=== PATIENT | male | born 1950 | race Caucasian/White ===

== ENCOUNTER 2019-06-25 09:16 | Day surgery (SDC) | payer OTHER, SELFPAY ==
[2019-06-24 07:31] VITALS: BMI 23.0
[2019-06-24 13:09] VITALS: BMI 22.2
[2019-06-25 09:31] VITALS: BP 135/87; PULSE 56; RESP 18; TEMP 36.8; O2SAT 98
[2019-06-25] MEDS: sodium chloride 0.9% 1,000 ML 30 ML IV (09:38)
--- NOTE | 2019-06-25 09:43 | W.PM.OPSUD ---
Surgery/Procedure H&P Update DATE OF PROCEDURE: June 25, 2019 DATE H&P PERFORMED: 06/21/19 H&P UPDATE INFORMATION: I have reviewed H&P completed within last 30 days, I have examined patient prior to procedure and No changes to prior documentation PREOP DIAGNOSIS: Dysphagia PLANNED PROCEDURE: Operation Date: 06/25/19 10:50 Proposed Procedures p EGD 38388/R13.10(Not Applicable) - Ghanshyam Pantoja MD
--- NOTE | 2019-06-25 10:11 | ANES.PREANE2 ---
Pre-Anesthetic Assessment Pre-Anesthetic Assessment: Height/Weight: Height 1.91 m Weight 80.739 kg Temp Pulse Resp BP Pulse Ox 98.2 F 56 L 18 135/87 98 06/25/19 09:31 06/25/19 09:31 06/25/19 09:31 06/25/19 09:31 06/25/19 09:31 Preop Diagnosis: Dysphagia Proposed Procedure: Operation Date: 06/25/19 10:50 Proposed Procedures p EGD 95022/R13.10(Not Applicable) - Ghanshyam Pantoja MD Was Beta Tiffany taken within 24 hours: N/A Last intake: Intake Last Liquid Date 06/24/19 Last Liquid Time 19:00 Last Solid Date 06/24/19 Last Solid Time 19:00 Social: Social History: No alcohol and No tobacco Exam: Pre-Anes Outpt Exam: alert, oriented x 3, clear to auscultation bilaterally and regular rate & rhythm Airway: Submandibular: WNL Cervical ROM: WNL MP: 2 Dentition: Full History/ROS: No significant history except as noted and No significant complaints Pulmonary: Pulmonary: None reported CV/HEM: CV/HEM: None reported : : None reported Hepatic: Hepatic: None reported GI: GI: GERD and Hiatus hernia Metabolic: Metabolic: None reported Musc/skel: Musc/skel: None reported Neuropsych: Neuropsych: None reported Anesthetic Plan: ASA status: 2 Anesthesia: Anesthesia Evaluation and MAC Risk of > 500 ml blood loss (7ml/kg in children): No Meds/Allergies Current Medications: Current Medications Generic Name Dose Route Start Last Admin Trade Name Freq PRN Reason Stop Dose Admin Sodium Chloride 1,000 mls @ 30 ml s/hr 06/25/19 09:30 06/25/19 09:38 Sodium Chloride 0.9% IV 06/26/19 09:29 30 mls/hr .Q24H EMILIANA Administration PFSH Anesthesia PFSH: Social History Smoking and tobacco status: never smoked History of recent travel: No Data Anesthesia Cardiac Studies: No Data to Display
[2019-06-25 11:08] VITALS: BP 149/105; PULSE 107; RESP 18; TEMP 36.6; O2SAT 98
[2019-06-25 11:25] VITALS: BP 163/98; PULSE 77; RESP 20; O2SAT 99
[2019-06-25 11:40] VITALS: BP 152/98; PULSE 65; RESP 20; O2SAT 98
== END 2019-06-25 13:00 | disposition home or self-care (01) ==
PROVIDERS: Family Provider Nurse Practitioner Family; Visit Provider Surgery
PROC: 0DJ08ZZ Inspection of Upper Intestinal Tract, Via Natural or Artificial Opening Endoscopic (ICD-10-PCS; CPT 43235; principal; 2019-06-25 10:45)
DX: R13.10 Dysphagia, unspecified (principal); K21.9 Gastro-esophageal reflux disease without esophagitis; K44.9 Diaphragmatic hernia without obstruction or gangrene
CPT/HCPCS: 43249; 12345; J2704; J7030

== ENCOUNTER 2019-07-02 08:05 | Outpatient (CLI) | payer OTHER, SELFPAY ==
--- NOTE | 2019-07-02 | FL_ITS ---
WS: [id number] ESOPHAGRAM WITH FLUOROSCOPY HISTORY: DYSPHAGIA COMPARISON: None available. FLUOROSCOPY TIME: 0.9 minutes. Image Editor radiograph: Increase in cervical lordosis. Study limited by motion. Esophagus and swallowing function: Barium was swallowed without difficulty. There is mild coating of the pharynx. Marked distention of the mid to distal esophagus. Food products are still present in the distal esophagus. The barium mixture demonstrating backward important motion. There is poor emptying of the distal esophagus. There is a severe stenosis at the distal esophagus. Small amount of barium does slowly proceed through the high-grade stricture. Due to the marked delay in emptying of the esop hagus the study was terminated early. Gastroesophageal reflux: Could not be evaluated due to delayed emptying. Hiatal hernia: No hiatal hernia. FL/FL barium swallow [id number] IMPRESSION: 1. High-grade stricture distal esophagus. 2. Marked dilatation of the mid to distal esophagus due to long-standing dista l esophageal stricture. Retained food products are noted within the distal esop hagus.
== END 2019-07-02 08:06 | disposition home or self-care (01) ==
LOC: RAD 08:07
PROVIDERS: Visit Provider Surgery
DX: R13.10 Dysphagia, unspecified (principal); K22.2 Esophageal obstruction; K22.8 Other specified diseases of esophagus
CPT/HCPCS: 74220

== ENCOUNTER 2019-12-12 09:32 | Outpatient (CLI) | payer OTHER, SELFPAY ==
--- NOTE | 2019-12-12 09:30 | FL_ITS ---
WS: [id number] MODIFIED BARIUM SWALLOW TECHNIQUE: Modified barium swallow with speech therapy using multiple consistencies. FLUOROSCOPY TIME: 6.3 minutes. 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 Delayed transit of the barium tablet at the GE ju nction. Limited esophagram performed after delayed transit of the barium tablet. Markedly delayed emptying of the distal esophagus at the GE junction with esophageal dilatation. Tapered narrowing at the distal esophagus sphincter with esophageal spasm. Upstream dilatation of the thoracic esophagus. Standing co lumn of contrast in the upright imaging which eventually partially empties with additional ingestion of liquid. Esophageal dysmotility with decreased contractility in the thoracic esophagus. Findings have the appearance of achalasia or pseudoachalasia with partial emptying after additional l iquid ingestion. Stricture or spasm at the distal esophagus that never fully distends. Distal esophag us never fully empties even after several minutes and additional ingestion of liquid. FL/FL barium swallow modifd [id number] IMPRESSION: 1. Markedly delayed emptying of the distal esophagus with the appearance of ac halasia or pseudoachalasia. Standing column of liquid eventually results in par tial emptying. 2. Stricture or spasm in the distal esophagus never fully distends. Recommend endoscopy to exclude underlying malignancy. 3. Prominent thoracic esophageal dilatation with decreased contractility
== END 2019-12-12 09:33 | disposition home or self-care (01) ==
LOC: RAD 09:32
PROVIDERS: Family Provider Nurse Practitioner Family; Visit Provider Surgery
DX: K22.0 Achalasia of cardia (principal)
CPT/HCPCS: 74230; 92611

== ENCOUNTER → 2020-02-19 10:11 | Outpatient (BNVA) | payer OTHER, SELFPAY | PROVIDERS: Family Provider Nurse Practitioner Family; Visit Provider Surgery | DX: Z20.828 Contact with and (suspected) exposure to other viral communicable diseases (principal); K22.0 Achalasia of cardia; R13.10 Dysphagia, unspecified | CPT/HCPCS: 87635 ==

== ENCOUNTER 2020-02-25 08:09 | Day surgery (SDC) | payer OTHER, SELFPAY ==
[2020-02-24 13:38] VITALS: BMI 18.7
[2020-02-25] VITALS (11 sets, daily range): BP systolic 120–179; BP diastolic 79–124; PULSE 54–69; RESP 12–18; TEMP 36.1–36.4; O2SAT 97–100
[2020-02-25] MEDS: sodium chloride 0.9% 50 ML 30 ML (09:15)
[2020-02-25] MEDS: heparin 5,000 unit/mL INJ 1 mL 3000 UNIT SUBCUT (09:25)
--- NOTE | 2020-02-25 09:33 | ANES.PREANE2 ---
Pre-Anesthetic Assessment Pre-Anesthetic Assessment: Height/Weight: Height 1.91 m Weight 68.039 kg Temp Pulse Resp BP Pulse Ox 97 F L 54 L 18 125/89 99 02/25/20 08:40 02/25/20 08:40 02/25/20 08:40 02/25/20 08:40 02/25/20 08:40 Preop Diagnosis: Achalasia of the cardia Proposed Procedure: Operation Date: 02/25/20 09:50 Proposed Procedures p Laparoscopic Esophageal Heller Myotomy w/ ELSIE Fundoplication 41169 89118 R13.10 K22.0(Not Applicable) - Steve Garcia MD s EGD(Not Applicable) - Steve Garcia MD Familial anesthetic complications: denies Was Beta Tiffany taken within 24 hours: N/A Last intake: Intake Last Liquid Date 02/25/20 Last Liquid Time 05:00 Last Solid Date 02/16/20 Last Solid Time 12:00 Social: Social History: No alcohol and No tobacco Exam: Pre-Anes Outpt Exam: alert, oriented x 3, clear to auscultation bilaterally and regular rate & rhythm Airway: Submandibular: WNL Cervical ROM: WNL MP: 1 History/ROS: No significant history except as noted Pulmonary: Pulmonary: None reported CV/HEM: CV/HEM: None reported : : None reported Hepatic: Hepatic: None reported GI: GI: GERD Metabolic: Metabolic: None reported Musc/skel: Musc/skel: None reported Neuropsych: Neuropsych: None reported Anesthetic Plan: ASA status: 1 Anesthesia: Anesthesia Evaluation and General Risk of > 500 ml blood loss (7ml/kg in children): No PFSH Anesthesia PFSH: Medical History Achalasia Surgical History History of colonoscopy History of esophagogastroduodenoscopy (EGD) History of tonsillectomy Family History Denies family history of Anesthesia complication Bleeding disorder Social History Smoking and tobacco status: never smoked History of recent travel: No Data Anesthesia Cardiac Studies: No Data to Display
--- NOTE | 2020-02-25 09:38 | W.PM.OPSUD ---
Surgery/Procedure H&P Update DATE OF PROCEDURE: February 25, 2020 DATE H&P PERFORMED: 02/19/21 H&P UPDATE INFORMATION: I have reviewed H&P completed within last 30 days, I have examined patient prior to procedure and No changes to prior documentation (In-depth details and finalizing discussion about surgery with potential risks of EGD and bougie insertion during the procedure with potential esophageal perforation.) PREOP DIAGNOSIS: Achalasia of the cardia PRIMARY INDICATION FOR PROCEDURE: The same PLANNED PROCEDURE: Operation Date: 02/25/20 09:50 Proposed Procedures p Laparoscopic Esophageal Heller Myotomy w/ ELSIE Fundoplication 80630 95173 R13.10 K22.0(Not Applicable) - Steve Garcia MD s EGD(Not Applicable) - Steve Garcia MD
--- NOTE | 2020-02-25 11:37 | P.OP_ITS ---
Operative Report Date of procedure: February 25, 2020 Pre-op Diagnosis: Achalasia of the cardia Post-op diagnosis: other (Large hiatal defect with frozen mediastinum) Procedure Done: Attempted laparoscopic Heller myotomy converted to diagnostic laparoscopy Specimens removed/disposition: none Surgeon: Steve Garcia Promotions Executive Producer: Surgical techshawn Cochran/Sherin/Maribel Circulating nurses Rita and Sabra Anesthesia: General (FABIOLA Alaniz/Dr. Chiu) Estimated blood loss (mL): 5 IV fluids (mL): 1,500 Urine output (mL): 300 Complications: No immediate complication Condition: stable Disposition: same day Brief History: This is a pleasant 69 years old gentleman was extensively worked up for symptoms of achalasia of the cardia and patient was counseled for different options to proceed with and he elected to proceed with laparoscopic Heller myotomy with Ramin fundoplication. Informed consent per Procedure: Patient was identified in holding area,appropriate pharmacologic DVT prophylaxis was given, patient was then taken to the operating room where the patient was placed in supine position, intubated by anesthesia prophylactic antibiotics were given per protocol,Time-out was done verifying the patient's name/date of bi rth/planned procedure and destination after the procedure, all were in agreement. SCDs confirmed to be functioning, preoperative antibiotics administered per protocol, and beta kaerl protocol was confirmed patient was placed in a low lithotomy position, both arms were tucked to the sides.and all pressure points were padded,a Polanco catheter was placed by the circulating nurse that revealed clear urine. The patient was appropriately secured to the operating table, and I asked anesthesia to swing the table [id number] in different positions that the patient is appropriately secured to the OR table which it was the case. Prep and drape of the abdomen was done under the usual sterile technique, started by 1.2 cm transverse incision with 15 blade knife, 12 cm below the xiphoid and 3 cm to the left of the midline, followed by that a 12 mm optical trocar was used under direct vision and placed in the peritoneal cavity without difficulty. The peritoneal cavity was insufflated with CO2 gas up to 15 mmHg, followed by that an angled scope 10 mm was inserted in the abdominal cavity, the abdomen was surveyed there was no evidence of blood or fluid or other evidence of intra-abdominal injury Following that two 5 mm ports were placed one hand breadth from the xiphoid process under the left subcostal region and the other one was placed at the left flank one handbreadth from the prior 5 mm trocar. A 12 mm port was placed in the subxiphoid region towards the right upper subcostal region all trochars were placed under direct visualization.. At this point to insert an additional 5 mm trocar 12 centimeter to the right of the xiphoid process at the upper abdomen, and liver retractor was placed under direct visualization to lift the liver up and helped greatly for appropriate v isualization of the hiatus. Patient was placed in steep reverse T Bryant and I stood between the patient's legs. Visualization of the hiatus showed large hiatal defect measures about 8.5 x 6.5 cm with paraesophageal hernia component including the proximal part of the stomach yet the mediastinum was frozen at this point. I started by dissecting the Pars flaccida dissection in an attempt to evaluate more the surgical pathology revealed that the defect will not be closed primarily with additional mesh on top of the repair, I did appreciate at this point that the defect will require a larger piece of mesh which is not available and giving the fact that the mediastinum is frozen clinically intraoperatively. I elected at this point to not to proceed further and abort the procedure at this point. Likely the patient would fit from potential future robotic surgical intervention And having a bigger piece of mesh beforehand. After adequate hemostasis the liver retractor was taken out under direct visualization, final laparoscopic survey was done showing no injuries to intra- abdominal structures, both 12 mm trocar sites were closed by Yvon Casillas under direct visualization using #1 PDS sutures,following that a TAP Block was done using Exparel then all ports were removed and both 12 mm ports under direct visualization.The rest of the stab incisions were closed by Vicryl sutures followed by 4-0 Monocryl followed by surgical glue and patient tolerated the procedure well. Bilateral TAP (transversus abdominous plain peripheral nerve block )block using Exparel 20 mL Exparel 40 ml Normal saline 20 ml bupivacaine 0.25% 30 mL on each side injected 20 mL injected the port sites The count of instruments,needles and sponges was completed at the end of the procedure. Polanco catheter was taken out at the end of the procedure without complications I was present for the whole entire procedure patient tolerated the procedure well,was extubated and was taken to the recovery room in stable condition.
[2020-02-25] MEDS: hyDRALAzine 20 mg/mL INJ 1 mL 5 MG IVP (12:08)
--- NOTE | 2020-02-25 12:09 | SUR.PHASEI ---
1207-ORAL AIRWAY OUT, SIMPLE MASK AT 6LPM SAT 100%
--- NOTE | 2020-02-25 14:12 | SUR.PHASEII ---
Patient ready for discharge. Awaiting his brother to pick him up.
--- NOTE | 2020-02-25 18:53 | ANE.PACU2 ---
Inpatient post-anesthesia follow up: Airway intact: Yes Vital signs: Temperature 97.3 F Pulse Rate 58 Respiratory Rate 18 Blood Pressure 120/80 Pulse Oximetry 98 Oxygen Delivery Me thod Room Air Oxygen Flow Rate 6 Fraction of Inspir ed Oxygen Hydration adequate: Yes Nausea and vomiting: No Pain level: 2 Mental status: Baseline
== END 2020-02-25 14:50 | disposition home or self-care (01) ==
PROVIDERS: Visit Provider Surgery
PROC: 0D844ZZ Division of Esophagogastric Junction, Percutaneous Endoscopic Approach (ICD-10-PCS; CPT 43279; principal; 2020-02-25 09:50)
DX: K22.0 Achalasia of cardia (principal); K21.9 Gastro-esophageal reflux disease without esophagitis; K44.9 Diaphragmatic hernia without obstruction or gangrene
CPT/HCPCS: 43279; 12345; 51702; 96365; 96372; C9290; J0131; J0360; J0690; J1100; J1644; J2250; J2405; J2704; J2710; J3010; J3490

== ENCOUNTER → 2021-04-14 09:55 | Outpatient (BNVA) | payer OTHER, SELFPAY | PROVIDERS: PCP Family Medicine; Visit Provider Internal Medicine | DX: Z01.812 Encounter for preprocedural laboratory examination (principal); Z20.822 Contact with and (suspected) exposure to COVID-19 | CPT/HCPCS: 87635 ==

== ENCOUNTER 2021-04-19 07:23 | Day surgery (SDC) | payer OTHER, SELFPAY ==
[2021-04-16 09:58] VITALS: BMI 20.6
--- NOTE | 2021-04-19 07:49 | W.PM.OPSFHP ---
Same Day Surgery H&P Indication for Procedure/HPI DATE OF PROCEDURE: April 19, 2021 CHIEF COMPLAINT/INDICATIONFOR SURGICAL PROCEDURE: Achalasia PREOP DIAGNOSIS: Achalasia, Needs EGD with botox injection PLANNED PROCEDURE: Operation Date: 04/19/21 08:45 Proposed Procedures p EGD With Botox Injection 96862/k22.0 100units(Not Applicable) - Jorge Luis Milan MD Medications/Allergies* Home Medications Medication Instructions Recorded Confirmed Type multivitamin (Daily Multi-Vitamin) 1 tab PO DAILY 06/21/19 04/16/21 History omeprazole 40 mg capsule,delayed 40 mg PO EVERY OTHER DAY cap 04/08/21 04/16/21 History release Allergies/Adverse Reactions Allergy/AdvReac Type Severity Reaction Status Date / Time No Known Allergies Allergy Verified 04/08/21 10:45 Pertinent History/Comorbid Conditions* Medical History (Updated 03/06/20 @ 12:02 by Steve Garcia MD) Achalasia Surgical History (Updated 06/21/19 @ 10:34 by Ghanshyam Pantoja MD) History of colonoscopy History of esophagogastroduodenoscopy (EGD) History of tonsillectomy Family History (Updated 06/21/19 @ 10:24 by Fany Esparza RN) Denies family history of Anesthesia complication Bleeding disorder Social History Smoking and tobacco status: never smoked History of recent travel: No Pertinent Exam Findings alert, oriented x 3, clear to auscultation bilaterally, regular rate & rhythm, operative site marked and procedure specific exam findings Recommendations Surgery/Procedure today Coding Level of Care Code Acute Truck Service Technician for g Shilo
[2021-04-19 08:18] VITALS: BP 115/83; PULSE 80; RESP 16; TEMP 36.3; O2SAT 96
[2021-04-19] MEDS: sodium chloride 0.9% 1,000 ML 30 ML IV (08:25)
--- NOTE | 2021-04-19 08:26 | P.ANESASSM_ITS ---
Pre-Anesthetic Assessment Height/Weight: Height 1.91 m Weight 74.843 kg Temp Pulse Resp BP Pulse Ox 97.4 F L 80 16 115/83 96 04/19/21 08:18 04/19/21 08:18 04/19/21 08:18 04/19/21 08:18 04/19/21 08:18 Preop Diagnosis: Achalasia, Needs EGD with botox injection Operation Date: 04/19/21 08:45 Proposed Procedures p EGD With Botox Injection 28936/k22.0 100units(Not Applicable) - Jorge Luis Milan MD Familial anesthetic complications: None Was Beta Tiffany taken within 24 hours: N/A Was Clonidine taken within 24 hours: N/A Last intake: Intake Last Liquid Date 04/18/21 Last Liquid Time 22:00 Last Solid Date 04/17/21 Last Solid Time 19:30 Social No alcohol and No tobacco Exam alert, oriented x 3, clear to auscultation bilaterally and regular rate & rhythm Airway Submandibular: within normal limits Cervical ROM: within normal limits Mallampati: Class II Dentition: chipped Comments: Comments: Missing some GI Gastroesophageal Reflux Disease dysphagia Anesthetic Plan ASA status: 2 Anesthesia: MAC Medications/Allergies Home Medications Medication Instructions Recorded Confirmed Last Taken Type multivitamin (Daily Multi-Vitamin) 1 tab PO DAILY 06/21/19 04/19/21 04/18/21 History omeprazole 40 mg capsule,delayed 40 mg PO EVERY OTHER DAY cap 04/08/21 04/19/21 04/18/21 History release Allergies Allergy/AdvReac Type Severity Reaction Status Date / Time No Known Allergies Allergy Verified 04/19/21 08:15 [facility] Anesthesia Medical History Achalasia Surgical History History of colonoscopy History of esophagogastroduodenoscopy (EGD) History of tonsillectomy Family History Denies family history of Anesthesia complication Bleeding disorder Social History Smoking and tobacco status: never smoked History of recent travel: No Data Anesthesia Cardiac Studies: No Data to Display
[2021-04-19 09:50] VITALS: BP 121/84; PULSE 72; RESP 16; TEMP 36.1; O2SAT 99
[2021-04-19 09:55] VITALS: BP 125/87; PULSE 64; RESP 15; O2SAT 100
[2021-04-19 10:00] VITALS: BP 122/83; PULSE 61; RESP 17; TEMP 36.4; O2SAT 99
[2021-04-19 10:02] VITALS: BP 116/78; PULSE 59; RESP 15; TEMP 36.1; O2SAT 97
[2021-04-19 10:22] VITALS: BP 113/76; PULSE 57; RESP 13; O2SAT 97
--- NOTE | 2021-04-19 14:26 | ANE.PACU2 ---
Inpatient post-anesthesia follow up: Airway intact: Yes Vital signs: Temperature 97.0 F Pulse Rate 57 Respiratory Rate 13 Blood Pressure 113/76 Pulse Oximetry 97 Oxygen Delivery Me thod Room Air Oxygen Flow Rate 8 Fraction of Inspir ed Oxygen Hydration adequate: Yes Nausea and vomiting: No Pain level: 1 Mental status: Baseline
== END 2021-04-19 10:43 | disposition home or self-care (01) ==
PROVIDERS: PCP Family Medicine; Visit Provider Internal Medicine
PROC: 3E0G8TZ Introduction of Destructive Agent into Upper GI, Via Natural or Artificial Opening Endoscopic (ICD-10-PCS; CPT 43236; principal; 2021-04-19 08:45)
DX: K22.0 Achalasia of cardia (principal); T18.128A Food in esophagus causing other injury, initial encounter; K44.9 Diaphragmatic hernia without obstruction or gangrene; K21.9 Gastro-esophageal reflux disease without esophagitis
CPT/HCPCS: 43236; 43247; J0330; J0585; J1100; J2405; J2704; J7030

== ENCOUNTER → 2023-12-06 08:33 | Outpatient (BNVA) | payer OTHER, SELFPAY | PROVIDERS: PCP Family Medicine; Visit Provider Podiatrist Foot & Ankle Surgery | DX: M79.671 Pain in right foot (principal); S92.351A Displaced fracture of fifth metatarsal bone, right foot, initial encounter for closed fracture; W19.XXXA Unspecified fall, initial encounter | CPT/HCPCS: 26600; 73630; 99204 ==

== ENCOUNTER → 2024-01-03 10:26 | Outpatient (BNVA) | payer OTHER, SELFPAY | PROVIDERS: PCP Family Medicine; Visit Provider Podiatrist Foot & Ankle Surgery | DX: S92.354G Nondisplaced fracture of fifth metatarsal bone, right foot, subsequent encounter for fracture with delayed healing; X58.XXXD Exposure to other specified factors, subsequent encounter | CPT/HCPCS: 73630; 99213 ==